=== PATIENT | male | born 1965 | race Caucasian/White ===

== ENCOUNTER → 2024-05-16 08:09 | Outpatient (REF) | payer BC, SELFPAY | LOC: RAD 08:09 | PROVIDERS: ATTENDING PHYSICIAN Family Medicine | DX: K57.32 Diverticulitis of large intestine without perforation or abscess without bleeding (principal) | CPT/HCPCS: 74178; Q9967 ==

== ENCOUNTER 2024-06-03 06:18 | Day surgery (SDC) | payer BC, SELFPAY ==
[2024-06-03] VITALS (15 sets, daily range): BP systolic 119–136; BP diastolic 68–88; BMI 26.2
[2024-06-03] MEDS: TYLENOL 1000 MG PO (06:38)
[2024-06-03] MEDS: NORMOSOL-R 1000 IV (06:42)
--- NOTE | 2024-06-03 07:15 | W.SUR.PREOP ---
Pre-Operative Surgical Note
-
I have examined this patient prior to the performance of the scheduled procedure.
The patient's condition is unchanged from the time of the current History and
Physical and the patient is able to undergo the scheduled procedure.
--- NOTE | 2024-06-03 09:06 | W.IMMPOSTOP ---
Addendum entered and electronically signed by Camilo Artis MD 06/03/24 09:13:
#[id number]
Original Note:
Surgical Immed Post Op Note
-
Primary Surgeon: Chandra
Assisting Surgeon: Dayan ZELAYA
Pre-op Diagnosis: Left inguinal hernia
Post-op Diagnosis: Left inguinal hernia, indirect
Procedure Performed: Robotic assisted laparoscopic TOMMIE repair left inguinal hernia with mesh; 3D max large mid weight
Anesthesia Type: GETA +0.25% Marcaine
Specimen / Cultures: None
Estimated Blood Loss: 4 mL
Complications: None immediate
Operative Findings: Left indirect inguinal hernia and lipoma of cord structures reduced and excised. 3D max large mid weight mesh repair. Right inguinal region normal. No additional incidental findings.
== END 2024-06-03 12:00 | disposition home or self-care (01) ==
LOC: SDS 06:18
PROVIDERS: ATTENDING PHYSICIAN Surgery
DX: K40.90 Unilateral inguinal hernia, without obstruction or gangrene, not specified as recurrent (principal)
CPT/HCPCS: 49650; 93005; C1781